=== PATIENT | male | born 1975 | race African-American/Black ===

== ENCOUNTER 2019-12-11 16:57 | Inpatient (IN) | payer BC, MEDICAID ==
[2019-12-11] MEDS ORDERED: HYDROCODONE/ACETAMINOPHEN 5-325 MG TABLET PO ONE (17:42)
--- NOTE | 2019-12-11 17:48 | ER Document Report ---
ED Medical Screen (RME) - General Chief Complaint: Leg Pain Stated Complaint: LEFT LEG PAIN Time Seen by Provider: 12/11/19 17:37 Primary Care Provider: DANNI HORNER MD [Primary Care Provider] - Follow up as needed Notes: Patient is a 44-year-old male with a history of hypertension who presents to the emergency department with left lower extremity swelling. Patient states that he has had his symptoms for the past 2 days. States he was wearing some boots the other day and thought that maybe he had rubbed wrong on his leg. States that the area feels very warm. Patient does not smoke and he denies any long car rides. Dates that he has had increased swelling. Also states that the pain is extreme pain. Exam: Edema and erythema noted to the left lower extremity from mid calf down. I have greeted and performed a rapid initial assessment of this patient. A comprehensive ED assessment and evaluation of the patient, analysis of test results and completion of medical decision making process will be conducted by an additional ED providers. - Related Data Allergies/Adverse Reactions: aspirin Allergy (Verified 12/11/19 17:36) Past Medical History - Social History Chew tobacco use (# tins/day): No Frequency of alcohol use: None Drug Abuse: None Physical Exam - Vital signs Vitals: Temp Pulse Resp BP Pulse Ox 99.4 F 112 H 16 133/80 H 98 12/11/19 17:04 12/11/19 17:04 12/11/19 17:04 12/11/19 17:04 12/11/19 17:04 Course - Vital Signs Vital signs: Temp Pulse Resp BP Pulse Ox 99.4 F 112 H 16 133/80 H 98 12/11/19 17:37 12/11/19 17:04 12/11/19 17:04 12/11/19 17:04 12/11/19 17:04 Doctor's Discharge - Discharge Referrals: DANNI HORNER MD [Primary Care Provider] - Follow up as needed
[2019-12-11 18:22] LABS: ABSOLUTE BASOPHILS # (AUTO) 0.1 10^3/uL (0.0-0.2); ABSOLUTE LYMPHOCYTES (AUTO) 1.8 10^3/uL (0.5-4.7); ABSOLUTE MONOCYTES (AUTO) 1.3 10^3/uL (0.1-1.4); ABSOLUTE NEUT (AUTO) 12.7 10^3/uL (1.7-8.2); BASOPHILS % (AUTO) 0.5 % (0-2); EOSINOPHILS % (AUTO) 0.3 % (0-6); HEMATOCRIT 41.9 % (37.9-51.0); HEMOGLOBIN 14.2 g/dL (13.5-17.0); LYMPHOCYTES % (AUTO) 11.5 % (13-45); MEAN CORPUSCULAR HEMOGLOBIN 27.6 pg (27.0-33.4); MEAN CORPUSCULAR HGB CONC 33.9 g/dL (32.0-36.0); MEAN CORPUSCULAR VOLUME 82 fl (80-97); MONOCYTES % (AUTO) 8.1 % (3-13); PLATELET COUNT 174 10^3/uL (150-450); RED BLOOD COUNT 5.14 10^6/uL (4.35-5.55); RED CELL DISTRIBUTION WIDTH 15.2 % (11.5-14.0); SEGMENTED NEUTROPHILS % (AUTO) 79.6 % (42-78); TOTAL CELLS COUNTED % (AUTO) 100 %
[2019-12-11] MEDS ORDERED: VANCOMYCIN HCL INJ 1000 MG VIAL IV ONE (19:25)
[2019-12-11] MEDS ORDERED: AMPICILLIN SOD/SULBACTAM 3 GM VIAL IV ONE (19:25)
--- NOTE | 2019-12-11 19:30 | RADIOLOGY REPORT (SQ) ---
EXAM DESCRIPTION: VENOUS UNILATERAL LOWER IMAGES COMPLETED DATE/TIME: 12/11/2019 7:21 pm REASON FOR STUDY: LLE pain COMPARISON: None. TECHNIQUE: Dynamic and static herzog scale and color images acquired of the left leg venous system. Se lected spectral images acquired with additional compression and augmentation maneuvers. The contralat eral common femoral vein and saphenofemoral junction were also imaged. Images stored on PACS. LIMITATIONS: None. FINDINGS: COMMON FEMORAL: Normal phasicity, compression and augmentation. No visualized echogenic ma terial on herzog scale. No defects on color images. FEMORAL: Normal compression and augmentation. No visualized echogenic material on herzog scale. No defe cts on color images. POPLITEAL: Normal compression, augmentation. No visualized echogenic material on herzog scale. No defec ts on color images. CALF VESSELS: Normal compression, augmentation. No visualized echogenic material on herzog scale. No de fects on color images. GSV and SSV: Normal compression, augmentation. No visualized echogenic material on herzog scale. No def ects on color images. ANY DEEP VENOUS INSUFFICIENCY: Reflux in the common femoral vein. ANY EVIDENCE OF POPLITEAL CYST: No. OTHER: No other significant finding. CONTRALATERAL COMMON FEMORAL VEIN AND SAPHENOFEMORAL JUNCTION: Normal phasicity, compression and augmentation. No visualized echogenic material on herzog scale. No de fects on color images. IMPRESSION: NO EVIDENCE DVT OR SVT IN THE LEFT LEG. TECHNICAL DOCUMENTATION: JOB ID: [id number] 2010 [employer]- All Rights Reserved Reading location - IP/workstation name: [email or web address]
[2019-12-11] MEDS ORDERED: MORPHINE SULFATE 10 MG/ML INJ IV ONE (21:15)
[2019-12-11] MEDS ORDERED: ONDANSETRON HCL INJ/PF 4 MG/2 ML SDV IV ONE (21:15)
[2019-12-11 21:45] LABS: ALBUMIN 4.1 g/dL (3.5-5.0); ALKALINE PHOSPHATASE 86 U/L (38-126); ANION GAP 7 (5-19); ASPARTATE AMINO TRANSFERASE 25 U/L (17-59); BILIRUBIN,DIRECT 0.1 mg/dL (0.0-0.4); BILIRUBIN,TOTAL 1.2 mg/dL (0.2-1.3); BLOOD UREA NITROGEN 11 mg/dL (7-20); CALCIUM 9.1 mg/dL (8.4-10.2); CARBON DIOXIDE 31 mmol/L (22-30); CHLORIDE 97 mmol/L (98-107); GLUCOSE 120 mg/dL (75-110); POTASSIUM 4.1 mmol/L (3.6-5.0); TOTAL PROTEIN 7.1 g/dL (6.3-8.2)
[2019-12-11] MEDS ORDERED: MAGNESIUM HYDROXIDE SUSP 30 ML UDCUP PO PRN (21:58)
[2019-12-11] MEDS ORDERED: MAG HYDROX/AL HYDROX/SIMETH SUSP 30 ML UDCUP PO PRN (21:58)
[2019-12-11] MEDS ORDERED: VANCOMYCIN HCL 0 MG in DEXTROSE 5%-WATER 250 ML IV NR (22:00)
[2019-12-11] MEDS ORDERED: HYDRALAZINE HCL INJ/PF 20 MG/1 ML SDV IV PRN (22:01)
[2019-12-11] MEDS ORDERED: AMPICILLIN SOD/SULBACTAM 3 GM VIAL IV PRN (22:36)
[2019-12-11] MEDS: KETOROLAC TROMETHAMINE INJ/PF 30 MG/1 ML SDV IV PRN (22:47)
[2019-12-11] MEDS: NORMAL SALINE 1000 ML 1,000 ML IV PRN (22:47)
[2019-12-11] MEDS: HEPARIN SOD (PORCINE) 5,000 UNIT/ML 1 ML VIAL SUBCUT SCH (22:48)
[2019-12-11] MEDS ORDERED: VANCOMYCIN HCL INJ 1000 MG VIAL IV PRN (22:56)
[2019-12-11] MEDS ORDERED: VANCOMYCIN HCL 1,000 MG in DEXTROSE 5%-WATER 250 ML IV ONE (23:00)
[2019-12-12] MEDS: AMPICILLIN SODIUM/SULBACTAM NA 3 GM in NORMAL SALINE 100 ML IV SCH ×4 (02:35→22:35)
[2019-12-12] MEDS: NORMAL SALINE 1000 ML 1,000 ML IV PRN (02:35)
--- NOTE | 2019-12-12 03:48 | PDOC H&P ---
History of Present Illness Admission Date/PCP: 12/11/19 22:03 DANNI HORNER MD Patient complains of: Left leg pain and swelling History of Present Illness: GUERA WILLIS is a 44 year old male with a past medical history of asthma and obesity who presents with 3 days of left lower leg pain and swelling with subjective fever prompting evaluation in the emergency department. He is found to have leukocytosis and a negative venous Doppler. He is placed on IV antibiotics and referred to the hospitalist for admission. Patient denies previous episode he denies trauma or gout. He admits to excessive skin shafe to the ankle area approximately 5 days ago after his sock became lodged in his boot. He denies recent antibiotics or change in medications. He is otherwise felt well Past Medical History Cardiac Medical History: Reports: Hypertension Pulmonary Medical History: Reports: Asthma GI Medical History: Reports: Gastroesophageal Reflux Disease Past Surgical History Past Surgical History: Reports: Orthopedic Surgery - Lt. ACL, Rt. Maniscus Social History Information Source: Patient Smoking Status: Never Smoker Electronic Cigarette use?: No Frequency of Alcohol Use: Rare Drugs: None - Advance Directive Resuscitation Status: Full Code Family History Family History: Hypertension Parental Family History Reviewed: Yes Children Family History Reviewed: Yes Sibling(s) Family History Reviewed.: Yes Medication/Allergy Allergies/Adverse Reactions: aspirin Allergy (Verified 12/11/19 17:36) Review of Systems Constitutional: ABSENT: chills, fever(s), headache(s), weight gain, weight loss Eyes: ABSENT: visual disturbances Ears: ABSENT: hearing changes Cardiovascular: ABSENT: chest pain, dyspnea on exertion, edema, orthropnea, palpitations Respiratory: ABSENT: cough, hemoptysis Gastrointestinal: ABSENT: abdominal pain, constipation, diarrhea, hematemesis, hematochezia, nausea, vomiting Genitourinary: ABSENT: dysuria, hematuria Musculoskeletal: ABSENT: joint swelling Integumentary: ABSENT: rash, wounds Neurological: ABSENT: abnormal gait, abnormal speech, confusion, dizziness, focal weakness, syncope Psychiatric: ABSENT: anxiety, depression, homidical ideation, suicidal ideation Endocrine: ABSENT: cold intolerance, heat intolerance, polydipsia, polyuria Hematologic/Lymphatic: ABSENT: easy bleeding, easy bruising Physical Exam Vital Signs: Temp Pulse Resp BP Pulse Ox 98.0 F 96 12 134/77 H 97 12/11/19 23:33 12/11/19 23:33 12/11/19 23:33 12/11/19 23:33 12/11/19 22:01 Intake & Output 12/10/19 12/11/19 12/12/19 11:59 11:59 11:59 Intake Total 958 Balance 958 Weight 120.8 kg General appearance: PRESENT: no acute distress, well-developed, well-nourished Head exam: PRESENT: atraumatic, normocephalic Eye exam: PRESENT: conjunctiva pink, EOMI, PERRLA. ABSENT: scleral icterus Ear exam: PRESENT: normal external ear exam Mouth exam: PRESENT: moist, tongue midline Neck exam: ABSENT: carotid bruit, JVD, lymphadenopathy, thyromegaly Respiratory exam: PRESENT: clear to auscultation misty. ABSENT: rales, rhonchi, wheezes Cardiovascular exam: PRESENT: RRR. ABSENT: diastolic murmur, rubs, systolic murmur Pulses: PRESENT: normal dorsalis pedis pul Vascular exam: PRESENT: normal capillary refill GI/Abdominal exam: PRESENT: normal bowel sounds, soft. ABSENT: distended, guarding, mass, organolmegaly, rebound, tenderness Rectal exam: PRESENT: deferred Extremities exam: PRESENT: full ROM, tenderness, +1 edema. ABSENT: calf tenderness, clubbing, pedal edema Neurological exam: PRESENT: alert, awake, oriented to person, oriented to place, oriented to time, oriented to situation, CN II-XII grossly intact. ABSENT: motor sensory deficit Psychiatric exam: PRESENT: appropriate affect, normal mood. ABSENT: homicidal ideation, suicidal ideation Skin exam: PRESENT: dry, erythema - Circumferential erythema from the foot to the knee without open ulcer or exudate., intact, warm. ABSENT: cyanosis, rash Results Laboratory Results: 12/11/19 17:54 12/11/19 20:45 12/11/19 12/11/19 12/11/19 17:54 17:54 20:45 WBC 16.0 H RBC 5.14 Hgb 14.2 Hct 41.9 MCV 82 MCH 27.6 MCHC 33.9 RDW 15.2 H Plt Count 174 Seg Neutrophils % 79.6 H Sodium Cancelled 135.2 L Potassium Cancelled 4.1 Chloride Cancelled 97 L Carbon Dioxide Cancelled 31 H Anion Gap Cancelled 7 BUN Cancelled 11 Creatinine Cancelled 1.15 Est GFR ( Amer) Cancelled > 60 Est GFR (Non-Af Amer) Cancelled Glucose Cancelled 120 H Lactic Acid Calcium Cancelled 9.1 Magnesium Cancelled 1.6 Total Bilirubin Cancelled 1.2 AST Cancelled 25 Alkaline Phosphatase Cancelled 86 C-Reactive Protein Cancelled 83.0 H Total Protein Cancelled 7.1 Albumin Cancelled 4.1 TSH 12/11/19 12/11/19 20:45 20:45 WBC RBC Hgb Hct MCV MCH MCHC RDW Plt Count Seg Neutrophils % Sodium Potassium Chloride Carbon Dioxide Anion Gap BUN Creatinine Est GFR ( Amer) Est GFR (Non-Af Amer) Glucose Lactic Acid 1.1 Calcium Magnesium Total Bilirubin AST Alkaline Phosphatase C-Reactive Protein Total Protein Albumin TSH 0.86 Impressions: Venous Doppler Study 12/11/19 17:42 IMPRESSION: NO EVIDENCE DVT OR SVT IN THE LEFT LEG. Assessment and Plan - Diagnosis (1) Left leg cellulitis Is this a current diagnosis for this admission?: Yes Plan: Cellulitis Will obtain blood and wound culture repeat CBC, continue empiric antibiotic coverage for community-acquired MRSA with double coverage and symptomatic management. Follow-up CBC and blood culture (2) Hyperglycemia Is this a current diagnosis for this admission?: Yes Plan: Follow-up A1c (3) Leg pain Is this a current diagnosis for this admission?: Yes Plan: Tylenol or Toradol as needed (4) Tinea pedis Is this a current diagnosis for this admission?: Yes Plan: Terbinafine - Time Time Spent with patient: 25-34 minutes - Inpatient Certification Medical Necessity: Need Close Monitoring Due to Risk of Patient Decompensation
[2019-12-12] MEDS: KETOROLAC TROMETHAMINE INJ/PF 30 MG/1 ML SDV IV PRN ×3 (05:56→19:42)
[2019-12-12] MEDS: HEPARIN SOD (PORCINE) 5,000 UNIT/ML 1 ML VIAL SUBCUT SCH ×3 (05:57→22:36)
[2019-12-12 07:25] LABS: ABSOLUTE BASOPHILS # (AUTO) 0.1 10^3/uL (0.0-0.2); ABSOLUTE LYMPHOCYTES (AUTO) 1.3 10^3/uL (0.5-4.7); ABSOLUTE MONOCYTES (AUTO) 1.3 10^3/uL (0.1-1.4); ABSOLUTE NEUT (AUTO) 12.4 10^3/uL (1.7-8.2); BASOPHILS % (AUTO) 0.5 % (0-2); EOSINOPHILS % (AUTO) 0.3 % (0-6); HEMATOCRIT 37.9 % (37.9-51.0); HEMOGLOBIN 12.9 g/dL (13.5-17.0); LYMPHOCYTES % (AUTO) 8.8 % (13-45); MEAN CORPUSCULAR HEMOGLOBIN 27.8 pg (27.0-33.4); MEAN CORPUSCULAR VOLUME 82 fl (80-97); MONOCYTES % (AUTO) 8.8 % (3-13); PLATELET COUNT 155 10^3/uL (150-450); RED BLOOD COUNT 4.63 10^6/uL (4.35-5.55); RED CELL DISTRIBUTION WIDTH 15.5 % (11.5-14.0); SEGMENTED NEUTROPHILS % (AUTO) 81.6 % (42-78); TOTAL CELLS COUNTED % (AUTO) 100 %; WHITE BLOOD COUNT 15.2 10^3/uL (4.0-10.5)
[2019-12-12] MEDS: ACETAMINOPHEN 325 MG TABLET PO PRN ×2 (08:25→18:16)
[2019-12-12] MEDS: DOCUSATE SODIUM 100 MG CAPSULE PO SCH ×2 (09:09→18:13)
[2019-12-12] MEDS: VANCOMYCIN HCL 1,500 MG in DEXTROSE 5%-WATER 250 ML IV SCH (11:06)
--- NOTE | 2019-12-12 15:04 | PDOC PROGRESS REPORT ---
Subjective Progress Note for:: 12/12/19 Subjective:: Patient feels well other than pain in his left leg. Reason For Visit: LEFT LEG CELLULITIS Physical Exam Vital Signs: Temp Pulse Resp BP Pulse Ox 98.8 F 91 18 137/71 H 94 12/12/19 10:57 12/12/19 10:57 12/12/19 10:57 12/12/19 10:57 12/12/19 10:57 Intake & Output 12/11/19 12/12/19 12/13/19 06:59 06:59 06:59 Intake Total 1058 1342 Balance 1058 1342 Weight 120.8 kg General appearance: PRESENT: no acute distress, cooperative Respiratory exam: PRESENT: unlabored. ABSENT: accessory muscle use, retraction, tachypnea GI/Abdominal exam: ABSENT: distended, hernia Extremities exam: PRESENT: tenderness - Left lower extremity, other - Left leg is swollen with some erythema and warmth. No clear skin cuts. Does have crusting of his nailbeds in left toes. Results Laboratory Results: 12/12/19 07:06 12/11/19 20:45 12/11/19 12/11/19 12/11/19 17:54 17:54 20:45 WBC 16.0 H RBC 5.14 Hgb 14.2 Hct 41.9 MCV 82 MCH 27.6 MCHC 33.9 RDW 15.2 H Plt Count 174 Seg Neutrophils % 79.6 H Sodium Cancelled 135.2 L Potassium Cancelled 4.1 Chloride Cancelled 97 L Carbon Dioxide Cancelled 31 H Anion Gap Cancelled 7 BUN Cancelled 11 Creatinine Cancelled 1.15 Est GFR ( Amer) Cancelled > 60 Est GFR (Non-Af Amer) Cancelled Glucose Cancelled 120 H Lactic Acid Calcium Cancelled 9.1 Magnesium Cancelled 1.6 Total Bilirubin Cancelled 1.2 AST Cancelled 25 Alkaline Phosphatase Cancelled 86 C-Reactive Protein Cancelled 83.0 H Total Protein Cancelled 7.1 Albumin Cancelled 4.1 TSH 12/11/19 12/11/19 12/12/19 20:45 20:45 06:04 WBC Cancelled RBC Cancelled Hgb Cancelled Hct Cancelled MCV Cancelled MCH Cancelled MCHC Cancelled RDW Cancelled Plt Count Cancelled Seg Neutrophils % Cancelled Sodium Potassium Chloride Carbon Dioxide Anion Gap BUN Creatinine Est GFR ( Amer) Est GFR (Non-Af Amer) Glucose Lactic Acid 1.1 Calcium Magnesium Total Bilirubin AST Alkaline Phosphatase C-Reactive Protein Total Protein Albumin TSH 0.86 12/12/19 07:06 WBC 15.2 H RBC 4.63 Hgb 12.9 L Hct 37.9 MCV 82 MCH 27.8 MCHC 34.0 RDW 15.5 H Plt Count 155 Seg Neutrophils % 81.6 H Sodium Potassium Chloride Carbon Dioxide Anion Gap BUN Creatinine Est GFR ( Amer) Est GFR (Non-Af Amer) Glucose Lactic Acid Calcium Magnesium Total Bilirubin AST Alkaline Phosphatase C-Reactive Protein Total Protein Albumin TSH Impressions: Venous Doppler Study 12/11/19 17:42 IMPRESSION: NO EVIDENCE DVT OR SVT IN THE LEFT LEG. Assessment and Plan - Diagnosis (1) Left leg cellulitis Is this a current diagnosis for this admission?: Yes Plan: We will continue current plan for broad-spectrum antibiotics. Could probably de-escalate tomorrow. Pain control. (2) Tinea pedis Is this a current diagnosis for this admission?: Yes Plan: Started on terbinafine on admission. Check a VIDAL prep of left toenails to confirm. (3) Hyperglycemia Is this a current diagnosis for this admission?: Yes Plan: Hemoglobin A1c is 5.9. Lifestyle modification - Time Time Spent with patient: Less than 15 minutes
[2019-12-12] MEDS: IPRATROPIUM/ALBUTEROL 0.5-2.5 MG/3 ML AMPUL NEB PRN (17:24)
[2019-12-13] MEDS: VANCOMYCIN HCL 1,500 MG in DEXTROSE 5%-WATER 250 ML IV SCH ×3 (00:50→22:16)
[2019-12-13] MEDS: KETOROLAC TROMETHAMINE INJ/PF 30 MG/1 ML SDV IV PRN ×3 (02:06→19:35)
[2019-12-13] MEDS: AMPICILLIN SODIUM/SULBACTAM NA 3 GM in NORMAL SALINE 100 ML IV SCH ×4 (05:27→20:35)
[2019-12-13 05:30] LABS: ABSOLUTE BASOPHILS # (AUTO) 0.1 10^3/uL (0.0-0.2); ABSOLUTE EOSINOPHILS # (AUTO) 0.1 10^3/uL (0.0-0.6); ABSOLUTE LYMPHOCYTES (AUTO) 1.4 10^3/uL (0.5-4.7); ABSOLUTE MONOCYTES (AUTO) 1.4 10^3/uL (0.1-1.4); ABSOLUTE NEUT (AUTO) 12.1 10^3/uL (1.7-8.2); BASOPHILS % (AUTO) 0.5 % (0-2); EOSINOPHILS % (AUTO) 0.4 % (0-6); HEMATOCRIT 37.6 % (37.9-51.0); HEMOGLOBIN 12.9 g/dL (13.5-17.0); LYMPHOCYTES % (AUTO) 9.3 % (13-45); MEAN CORPUSCULAR HEMOGLOBIN 27.7 pg (27.0-33.4); MEAN CORPUSCULAR HGB CONC 34.3 g/dL (32.0-36.0); MEAN CORPUSCULAR VOLUME 81 fl (80-97); MONOCYTES % (AUTO) 9.5 % (3-13); PLATELET COUNT 143 10^3/uL (150-450); RED BLOOD COUNT 4.65 10^6/uL (4.35-5.55); RED CELL DISTRIBUTION WIDTH 15.1 % (11.5-14.0); SEGMENTED NEUTROPHILS % (AUTO) 80.3 % (42-78); TOTAL CELLS COUNTED % (AUTO) 100 %; WHITE BLOOD COUNT 15.1 10^3/uL (4.0-10.5)
[2019-12-13] MEDS ORDERED: KETOROLAC TROMETHAMINE INJ/PF 30 MG/1 ML SDV IV ONE (05:30)
[2019-12-13] MEDS: HEPARIN SOD (PORCINE) 5,000 UNIT/ML 1 ML VIAL SUBCUT SCH ×3 (05:36→21:07)
[2019-12-13 05:48] LABS: ANION GAP 8 (5-19); BLOOD UREA NITROGEN 10 mg/dL (7-20); CALCIUM 8.7 mg/dL (8.4-10.2); CARBON DIOXIDE 29 mmol/L (22-30); CHLORIDE 101 mmol/L (98-107); GLUCOSE 110 mg/dL (75-110); POTASSIUM 3.7 mmol/L (3.6-5.0)
--- NOTE | 2019-12-13 08:16 | ER Document Report ---
Entered by DESI VAUGHN SCRIBE 12/11/191919 Acting as scribe for:LEOBARDO MARQUIS, DO ED Extremity Problem, Lower - General Chief Complaint: Leg Pain Stated Complaint: LEFT LEG PAIN Time Seen by Provider: 12/11/19 17:37 Primary Care Provider: DANNI HORNER MD [Primary Care Provider] - Follow up as needed Information source: Patient Notes: This 44 year old male patient presents to the emergency department today with complaints of pain in his left calf for the past x3 days. Patient states he also noticed swelling in his left foot x2 days ago. Patient states the swelling and stiffness in his left calf stops below his knee. Patient states there is not any problems with his right leg. Patient states he has not been bitten by any insects and denies a history of blood clots. - Related Data Allergies/Adverse Reactions: aspirin Allergy (Verified 12/11/19 17:36) Past Medical History - General Information source: Patient - Social History Smoking Status: Never Smoker Cigarette use (# per day): No Chew tobacco use (# tins/day): No Frequency of alcohol use: None Drug Abuse: None Family History: Reviewed & Not Pertinent, Hypertension Patient has homicidal ideation: No Past Surgical History: Reports: Hx Orthopedic Surgery - 2 screws in left knee Review of Systems - Review of Systems Constitutional: No symptoms reported EENT: No symptoms reported Cardiovascular: No symptoms reported Respiratory: No symptoms reported Gastrointestinal: No symptoms reported Genitourinary: No symptoms reported Male Genitourinary: No symptoms reported Musculoskeletal: See HPI, Leg swelling, Other - Pain in calf Skin: No symptoms reported Hematologic/Lymphatic: No symptoms reported Neurological/Psychological: No symptoms reported -: Yes All other systems reviewed and negative Physical Exam - Vital signs Vitals: Temp Pulse Resp BP Pulse Ox 99.4 F 112 H 16 133/80 H 98 12/11/19 17:04 12/11/19 17:04 12/11/19 17:04 12/11/19 17:04 12/11/19 17:04 - General General appearance: Appears well, Alert - HEENT Head: Normocephalic, Atraumatic Eyes: Normal Pupils: PERRL Ears: Normal External canal: Normal Tympanic membrane: Normal - Respiratory Respiratory status: No respiratory distress Chest status: Nontender Breath sounds: Normal Chest palpation: Normal - Cardiovascular Rhythm: Regular Heart sounds: Normal auscultation Murmur: No - Abdominal Inspection: Obese Distension: No distension Bowel sounds: Normal Tenderness: Nontender - Extremities General upper extremity: Normal inspection. No: Edema Notes: Tenderness with palpation to the left lower leg. Moderate edema of the left foot and calf. Erythema of the medial left calf. Streaking from the left ankle to the knee. - Neurological Neuro grossly intact: Yes Cognition: Normal Orientation: AAOx4 - Psychological Associated symptoms: Normal affect, Normal mood - Skin Skin Temperature: Warm Skin Moisture: Dry Skin Color: Normal Course - Re-evaluation Re-evalutation: 12/11/19 21:58 MDM Otherwise healthy 44 year old male with 2-3 days of left leg pain and now swelling and can not well ambulate. Comes in with low grade temperature and redness to left leg to just below the knee. The doppler is negative and I have discussed with Dr. Howard who has graciously agreed to see and evaluate for admission. - Vital Signs Vital signs: Temp Pulse Resp BP Pulse Ox 98.4 F 112 H 16 133/80 H 98 12/11/19 21:49 12/11/19 17:04 12/11/19 17:04 12/11/19 17:04 12/11/19 17:04 - Laboratory Result Diagrams: 12/11/19 17:54 12/11/19 20:45 Laboratory results interpreted by me: 12/11/19 12/11/19 17:54 20:45 WBC 16.0 H RDW 15.2 H Lymph % (Auto) 11.5 L Absolute Neuts (auto) 12.7 H Seg Neutrophils % 79.6 H Sodium 135.2 L Chloride 97 L Carbon Dioxide 31 H Glucose 120 H C-Reactive Protein 83.0 H Discharge - Discharge Clinical Impression: Left leg cellulitis Condition: Stable Disposition: ADMITTED OBSERVATION Admitting Provider: Lee (Hospitalist) Unit Admitted: Medical Floor Referrals: DANNI HORNER MD [Primary Care Provider] - Follow up as needed I personally performed the services described in the documentation, reviewed and edited the documentation which was dictated to the scribe in my presence, and it accurately records my words and actions.
[2019-12-13] MEDS: DOCUSATE SODIUM 100 MG CAPSULE PO SCH ×2 (09:31→18:52)
--- NOTE | 2019-12-13 10:51 | PDOC PROGRESS REPORT ---
Subjective Progress Note for:: 12/13/19 Subjective:: The left leg is still markedly swollen. The patient states he is still having significant discomfort that gets worse when the leg is in the dependent position. He also feels short of breath this morning. Reason For Visit: LEFT LEG CELLULITIS Physical Exam Vital Signs: Temp Pulse Resp BP Pulse Ox 99.2 F 92 16 140/67 H 100 12/13/19 07:35 12/13/19 07:35 12/13/19 07:35 12/13/19 07:35 12/13/19 07:35 Intake & Output 12/12/19 12/13/19 12/14/19 06:59 06:59 06:59 Intake Total 1058 2152 Output Total 850 Balance 1058 1302 Weight 120.8 kg General appearance: PRESENT: cooperative, mild distress, well-developed Eye exam: PRESENT: conjunctiva pink. ABSENT: scleral icterus Ear exam: PRESENT: normal external ear exam. ABSENT: bleeding, drainage Mouth exam: PRESENT: moist, tongue midline Respiratory exam: PRESENT: clear to auscultation misty, symmetrical, unlabored. ABSENT: rales, rhonchi, tachypnea, wheezes Cardiovascular exam: PRESENT: RRR, +S1, +S2. ABSENT: diastolic murmur, irregular rhythm, systolic murmur GI/Abdominal exam: PRESENT: normal bowel sounds, soft. ABSENT: distended, guarding, tenderness Rectal exam: PRESENT: deferred Gentrourinary exam: ABSENT: indwelling catheter Extremities exam: PRESENT: +2 edema - Left leg, other - Swelling with tenderness left leg Musculoskeletal exam: PRESENT: ambulatory - Limited due to pain Neurological exam: PRESENT: alert, awake, oriented to person, oriented to place, oriented to time, oriented to situation, CN II-XII grossly intact. ABSENT: altered, motor sensory deficit Psychiatric exam: PRESENT: appropriate affect, normal mood. ABSENT: agitated, anxious Focused psych exam: ABSENT: delusional, paranoid, restlessness Skin exam: PRESENT: dry, warm. ABSENT: rash Results Laboratory Results: 12/13/19 05:07 12/13/19 05:07 12/13/19 12/13/19 05:07 05:07 WBC 15.1 H RBC 4.65 Hgb 12.9 L Hct 37.6 L MCV 81 MCH 27.7 MCHC 34.3 RDW 15.1 H Plt Count 143 L Seg Neutrophils % 80.3 H Sodium 137.6 Potassium 3.7 Chloride 101 Carbon Dioxide 29 Anion Gap 8 BUN 10 Creatinine 1.05 Est GFR ( Amer) > 60 Glucose 110 Calcium 8.7 Impressions: Venous Doppler Study 12/11/19 17:42 IMPRESSION: NO EVIDENCE DVT OR SVT IN THE LEFT LEG. Assessment and Plan - Diagnosis (1) Cellulitis of left lower extremity Is this a current diagnosis for this admission?: Yes Plan: 12/13/2019 Currently on Unasyn and vancomycin through December 18. Blood cultures are negative so far. There was no drainage to culture on the leg. We will continue antibiotics. The CRP is elevated which is consistent with his inflammation. Will check periodically to assess for antibiotic response as well as clinical improvement. (2) Leukocytosis Qualifiers: Leukocytosis type: leukemoid reaction Qualified Code(s): D72.823 - Leukemoid reaction Is this a current diagnosis for this admission?: Yes Plan: 12/13/2019 White blood cell count is elevated in response to infection. It has come down just slightly but still remains 15,000. We will continue to monitor for ongoing antibiotics. (3) Leg pain Qualifiers: Laterality: left Qualified Code(s): M79.605 - Pain in left leg Is this a current diagnosis for this admission?: Yes Plan: Tylenol or Toradol as needed 12/13/2019 Continue current medications. Still with pain especially when his leg is in a dependent position. He reports significant throbbing. We will try to keep the leg elevated whenever possible. (4) Hyperglycemia Is this a current diagnosis for this admission?: Yes Plan: Hemoglobin A1c is 5.9. Lifestyle modification 12/13/2019 Possibly secondary to physiologic stress of infection. As noted above the hemoglobin A1c was only 5.9. Continue to check serum glucose periodically with lab work. (5) Tinea pedis Qualifiers: Laterality: unspecified laterality Qualified Code(s): B35.3 - Tinea pedis Is this a current diagnosis for this admission?: Yes Plan: Started on terbinafine on admission. Check a VIDAL prep of left toenails to confirm. 12/13/2019 VIDAL prep was positive. Continue terbinafine. - Time Time Spent with patient: 15-24 minutes Medications reviewed and adjusted accordingly: Yes Anticipated discharge: Home Within: within 72 hours
[2019-12-13] MEDS: IPRATROPIUM/ALBUTEROL 0.5-2.5 MG/3 ML AMPUL NEB PRN (10:52)
[2019-12-13] MEDS: ACETAMINOPHEN 325 MG TABLET PO PRN ×2 (12:19→20:35)
[2019-12-14] MEDS: AMPICILLIN SODIUM/SULBACTAM NA 3 GM in NORMAL SALINE 100 ML IV SCH ×3 (02:59→15:25)
[2019-12-14] MEDS: HEPARIN SOD (PORCINE) 5,000 UNIT/ML 1 ML VIAL SUBCUT SCH ×2 (05:06→14:31)
[2019-12-14] MEDS: IPRATROPIUM/ALBUTEROL 0.5-2.5 MG/3 ML AMPUL NEB PRN (05:06)
[2019-12-14 07:54] LABS: ABSOLUTE EOSINOPHILS # (AUTO) 0.1 10^3/uL (0.0-0.6); ABSOLUTE LYMPHOCYTES (AUTO) 1.3 10^3/uL (0.5-4.7); ABSOLUTE MONOCYTES (AUTO) 1.1 10^3/uL (0.1-1.4); ABSOLUTE NEUT (AUTO) 9.7 10^3/uL (1.7-8.2); BASOPHILS % (AUTO) 0.3 % (0-2); EOSINOPHILS % (AUTO) 0.8 % (0-6); HEMATOCRIT 37.4 % (37.9-51.0); HEMOGLOBIN 12.7 g/dL (13.5-17.0); MEAN CORPUSCULAR HEMOGLOBIN 27.7 pg (27.0-33.4); MEAN CORPUSCULAR VOLUME 81 fl (80-97); MONOCYTES % (AUTO) 8.9 % (3-13); PLATELET COUNT 164 10^3/uL (150-450); RED BLOOD COUNT 4.61 10^6/uL (4.35-5.55); RED CELL DISTRIBUTION WIDTH 15.3 % (11.5-14.0); TOTAL CELLS COUNTED % (AUTO) 100 %; WHITE BLOOD COUNT 12.3 10^3/uL (4.0-10.5)
[2019-12-14] MEDS: ACETAMINOPHEN 325 MG TABLET PO PRN (08:43)
[2019-12-14] MEDS: DOCUSATE SODIUM 100 MG CAPSULE PO SCH (09:10)
[2019-12-14] MEDS: VANCOMYCIN HCL 1,500 MG in DEXTROSE 5%-WATER 250 ML IV SCH (12:05)
[2019-12-14 12:35] LABS: VANCOMYCIN,TROUGH 7.1 ug/mL (5.0-20.0)
[2019-12-14 13:35] VITALS: BP 148/85
--- NOTE | 2019-12-14 13:48 | PDOC DISCHARGE SUMMARY ---
Impression - Admit/DC Date/PCP Admission Date/Primary Care Provider: 12/13/19 13:22 DANNI HORNER MD Discharge Date: 12/14/19 - Discharge Diagnosis (1) Cellulitis of left lower extremity Is this a current diagnosis for this admission?: Yes (2) Leukocytosis Is this a current diagnosis for this admission?: Yes (3) Leg pain Is this a current diagnosis for this admission?: Yes (4) Hyperglycemia Is this a current diagnosis for this admission?: Yes (5) Tinea pedis Is this a current diagnosis for this admission?: Yes - Additional Information Resuscitation Status: Full Code Discharge Diet: Regular Discharge Activity: Activity As Tolerated Referrals: DANNI HORNER MD [Primary Care Provider] - 12/21/19 2:45 pm Prescriptions: Amoxicillin/Potassium Clav [Augmentin 875-125 Tablet] 1 tab PO Q12 #20 tablet Home Medications: Albuterol Sulfate [Albuterol Sulfate Hfa] 2 puff IH Q6HP PRN 12/12/19 Amoxicillin/Potassium Clav [Augmentin 875-125 Tablet] 1 tab PO Q12 #20 tablet 12/14/19 History of Present Illiness History of Present Illness: GUERA WILLIS is a 44 year old male with a past medical history of asthma and obesity who presents with 3 days of left lower leg pain and swelling with subjective fever prompting evaluation in the emergency department. He is found to have leukocytosis and a negative venous Doppler. He is placed on IV antibiotics and referred to the hospitalist for admission. Patient denies pr evious episode he denies trauma or gout. He admits to excessive skin shafe to the ankle area approximately 5 days ago after his sock became lodged in his boot. He denies recent antibiotics or change in medications. He is otherwise felt well Hospital Course Hospital Course: Unremarkable hospital course. The antibiotics took slightly longer than expected to improve the cellulitis. Eventually the pain improved enough that he could weight-bear and tolerate his leg in a dependent position. He will complete antibiotic therapy as an outpatient. Physical Exam Vital Signs: Temp Pulse Resp BP Pulse Ox 98.1 F 99 18 148/85 H 100 12/14/19 12:00 12/14/19 12:00 12/14/19 12:00 12/14/19 12:12/14/19 12:00 Intake & Output 12/13/19 12/14/19 12/15/19 06:59 06:59 06:59 Intake Total 2152 1020 100 Output Total 850 925 Balance 1302 95 100 General appearance: PRESENT: no acute distress Respiratory exam: PRESENT: clear to auscultation misty, symmetrical, unlabored. ABSENT: prolonged expiratory phas, rales, rhonchi, tachypnea, wheezes Cardiovascular exam: PRESENT: RRR, +S1, +S2. ABSENT: diastolic murmur, irregular rhythm, systolic murmur GI/Abdominal exam: PRESENT: normal bowel sounds, soft. ABSENT: distended, guarding, tenderness Rectal exam: PRESENT: deferred Gentrourinary exam: ABSENT: indwelling catheter Extremities exam: PRESENT: +1 edema - Edema in the left leg is improved Musculoskeletal exam: PRESENT: ambulatory, tenderness - Still some tenderness in the left leg Neurological exam: PRESENT: alert, awake, oriented to person, oriented to place, oriented to time, oriented to situation, CN II-XII grossly intact. ABSENT: altered, motor sensory deficit Results Laboratory Results: WBC 12.3 10^3/uL (4.0-10.5) H 12/14/19 07:17 RBC 4.61 10^6/uL (4.35-5.55) 12/14/19 07:17 Hgb 12.7 g/dL (13.5-17.0) L 12/14/19 07:17 Hct 37.4 % (37.9-51.0) L 12/14/19 07:17 MCV 81 fl (80-97) 12/14/19 07:17 MCH 27.7 pg (27.0-33.4) 12/14/19 07:17 MCHC 34.0 g/dL (32.0-36.0) 12/14/19 07:17 RDW 15.3 % (11.5-14.0) H 12/14/19 07:17 Plt Count 164 10^3/uL (150-450) 12/14/19 07:17 Lymph % (Auto) 11.0 % (13-45) L 12/14/19 07:17 [place] % (Auto) 8.9 % (3-13) 12/14/19 07:17 Eos % (Auto) 0.8 % (0-6) 12/14/19 07:17 Baso % (Auto) 0.3 % (0-2) 12/14/19 07:17 Absolute Neuts (auto) 9.7 10^3/uL (1.7-8.2) H 12/14/19 07:17 Absolute Lymphs (auto) 1.3 10^3/uL (0.5-4.7) 12/14/19 07:17 Absolute Monos (auto) 1.1 10^3/uL (0.1-1.4) 12/14/19 07:17 Absolute Eos (auto) 0.1 10^3/uL (0.0-0.6) 12/14/19 07:17 Absolute Basos (auto) 0.0 10^3/uL (0.0-0.2) 12/14/19 07:17 Seg Neutrophils % 79.0 % (42-78) H 12/14/19 07:17 Platelet Estimate Cancelled 12/12/19 06:04 Sodium 137.6 mmol/L (137-145) 12/13/19 05:07 Potassium 3.7 mmol/L (3.6-5.0) 12/13/19 05:07 Chloride 101 mmol/L (98-107) 12/13/19 05:07 Carbon Dioxide 29 mmol/L (22-30) 12/13/19 05:07 Anion Gap 8 (5-19) 12/13/19 05:07 BUN 10 mg/dL (7-20) 12/13/19 05:07 Creatinine 1.05 mg/dL (0.52-1.25) 12/13/19 05:07 Est GFR ( Amer) > 60 (>60) 12/13/19 05:07 Est GFR (Non-Af Amer) Cancelled 12/11/19 17:54 Est GFR (MDRD) Non-Af > 60 (>60) 12/13/19 05:07 Glucose 110 mg/dL (75-110) 12/13/19 05:07 Hemoglobin A1c % 5.9 % (4.7-6.0) 12/11/19 17:54 Lactic Acid 1.1 mmol/L (0.7-2.1) 12/11/19 20:45 Calcium 8.7 mg/dL (8.4-10.2) 12/13/19 05:07 Magnesium 1.6 mg/dL (1.6-2.3) 12/11/19 20:45 Total Bilirubin 1.2 mg/dL (0.2-1.3) 12/11/19 20:45 Direct Bilirubin 0.1 mg/dL (0.0-0.4) 12/11/19 20:45 Neonat Total Bilirubin Not Reportable 12/11/19 20:45 Neonat Direct Bilirubin Not Reportable 12/11/19 20:45 Neonat Indirect Bili Not Reportable 12/11/19 20:45 AST 25 U/L (17-59) 12/11/19 20:45 ALT 25 U/L (<50) 12/11/19 20:45 Alkaline Phosphatase 86 U/L (38-126) 12/11/19 20:45 C-Reactive Protein 264.5 mg/L (<10.0) H 12/14/19 07:17 Total Protein 7.1 g/dL (6.3-8.2) 12/11/19 20:45 Albumin 4.1 g/dL (3.5-5.0) 12/11/19 20:45 EGFR Cancelled 12/11/19 17:54 TSH 0.86 uIU/mL (0.47-4.68) 12/11/19 20:45 Time Trough Drawn 1057 12/14/19 10:57 Vancomycin Trough 7.1 ug/mL (5.0-20.0) 12/14/19 10:57 VIDAL Preparation POSITIVE (NEGATIVE) 12/12/19 16:00 Slides for Path Review Cancelled 12/12/19 06:04 Impressions: Venous Doppler Study 12/11/19 17:42 IMPRESSION: NO EVIDENCE DVT OR SVT IN THE LEFT LEG. Plan Health Concerns: Recurrence of cellulitis Plan of Treatment: Complete antibiotic therapy as an outpatient. Follow-up with primary care provider Goals: Pleat resolution of cellulitis Time Spent: Greater than 30 Minutes Stroke Is this a Stroke Patient?: No Acute Heart Failure - Is this a Heart Failure Patient?: No
[2019-12-14] MEDS ORDERED: VANCOMYCIN HCL 1,000 MG in DEXTROSE 5%-WATER 250 ML IV SCH (22:00)
== END 2019-12-14 15:25 | disposition home or self-care (01) | DRG 603 ==
LOC: ER 16:57 → EH 22:03 → 4S 23:29 → OBSVTOIN 12-13 13:22
PROVIDERS: ADMIT Internal Medicine; ATTEND Hospitalist
DX: L03.116 Cellulitis of left lower limb (principal); B35.3 Tinea pedis; R73.9 Hyperglycemia, unspecified; D72.823 Leukemoid reaction
CPT/HCPCS: 36415; 80048; 80053; 80202; 83036; 83605; 83735; 84443; 85025; 86140; 87040; 87210; 93971; 94640; 96365; 96372; 96375; 99284; G0378; J0295; J0360; J1644; J1885; J2270; J2405; J3370; J7030; J7050; J7060; J7620